=== PATIENT | female | born 1980 | race Two or more races ===

== ENCOUNTER → 2020-05-22 | Outpatient (CLI) | payer OTHER ==
[2020-05-22 12:24] LABS: BASOPHILS % (AUTO) 1 % (0-1); EOSINOPHILS % (AUTO) 2 % (1-7); LYMPHOCYTES % (AUTO) 26 % (22-44); MEAN CORPUSCULAR HEMOGLOBIN 29.4 pg (27.0-34.8); MEAN CORPUSCULAR HGB CONC 33.4 g/dL (32.4-35.8); MONOCYTES % (AUTO) 5 % (2-9); NEUTROPHILS % (AUTO) 67 % (42-75); PLATELET COUNT 365 x10^3/uL (130-400); RED BLOOD COUNT 4.37 x10^6/uL (3.82-5.3); RED CELL DISTRIBUTION WIDTH 14.8 % (9.6-15.2)
[2020-05-22 12:25] LABS: MD NO
[2020-05-22 12:33] LABS: INTERNATIONAL NORMALIZED RATIO 0.99 (0.93-1.1); PROTHROMBIN TIME 10.5 Seconds (9.6-11.5)
[2020-05-22 12:35] LABS: ALBUMIN 3.9 g/dL (3.4-5.0); ANION GAP 7 mmol/L (5-15); CHLORIDE 106 mmol/L (98-107)
[2020-05-22 12:43] LABS: ALANINE AMINOTRANSFERASE 32 U/L (12-78); ALKALINE PHOSPHATASE 81 U/L (45-117); BILIRUBIN,TOTAL 0.4 mg/dL (0.2-1.0); CREATININE 0.85 mg/dL (0.55-1.02); TOTAL PROTEIN 7.6 g/dL (6.4-8.2)
== END | disposition home or self-care (01) ==
LOC: STAR 10:37
PROVIDERS: ATTEND Obstetrics & Gynecology
DX: Z01.818 Encounter for other preprocedural examination (principal); C55 Malignant neoplasm of uterus, part unspecified; N91.2 Amenorrhea, unspecified; N92.1 Excessive and frequent menstruation with irregular cycle; Z20.828 Contact with and (suspected) exposure to other viral communicable diseases
CPT/HCPCS: 71046; 80053; 84703; 85025; 85610; 85730; 86304; 87635; 93005

== ENCOUNTER 2020-05-26 09:12 | Day surgery (SDC) | payer OTHER ==
[~2020-05-26] VITALS: Ht 175.3 cm; Wt 96.0 kg
[~2020-05-26 09:12] MED LIST: BUPIVACAINE/PF 0.25% ONE; EPINEPHRINE 1 MG/ML, 1ML ONE; HEPARIN 1,000 UNITS/ML, 10ML ONE
[2020-05-26] MEDS ORDERED: CHLORHEXIDINE 15 ML UDC MM STA (09:28)
[2020-05-26] MEDS ORDERED: LACTATED RINGERS 1,000 ML IV SCH (09:30)
[2020-05-26] MEDS ORDERED: CEFOTETAN PMX 2GM/50ML 50 ML IVPB STA (09:54)
[2020-05-26 10:05] LABS: HCG UR SG 1.008 (1.003-1.030)
[2020-05-26] MEDS ORDERED: MIDAZOLAM 1 MG/ML, 2ML ONE (11:24)
[2020-05-26] MEDS ORDERED: FENTANYL PF 250 MCG/5ML ONE (11:24)
[2020-05-26] MEDS ORDERED: DEXAMETHASONE 4 MG/ML, 1ML ONE (11:28)
[2020-05-26] MEDS ORDERED: INDOCYANINE GREEN 25 MG VIAL INJ ONE (12:29)
[2020-05-26] MEDS ORDERED: HYDROmorphone 1 MG/ML, 1ML INJ IVPush PRN (13:00)
[2020-05-26] MEDS ORDERED: ONDANSETRON 2MG/ML, 2ML IVPush PRN (13:00)
[2020-05-26] MEDS ORDERED: LORazepam 2 MG/ML, 1ML IVPush PRN (13:00)
[2020-05-26] MEDS ORDERED: MEPERIDINE/PF 25MG/0.5ML IVPush PRN (13:00)
[2020-05-26] MEDS ORDERED: ACETAMINOPHEN 325 MG TABLET PO PRN (13:00)
[2020-05-26] MEDS ORDERED: PROMETHAZINE 25 MG SUPP PR PRN (13:00)
[2020-05-26] MEDS ORDERED: PROMETHAZINE 25 MG/ML, 1ML IVPush PRN (13:00)
[2020-05-26] MEDS ORDERED: FENTANYL PF 100 MCG/2ML IV PRN (13:00)
[2020-05-26] MEDS ORDERED: METHOCARBAMOL 1,000 MG in DEXTROSE 5% 100 ML IV PRN (13:00)
[2020-05-26] MEDS ORDERED: GLYCOPYRROLATE 0.2MG/1ML, 5ML ONE (13:55)
[2020-05-26] MEDS ORDERED: ROCURONIUM 10MG/ML,5ML ONE (13:55)
[2020-05-26] MEDS ORDERED: PROPOFOL 10 MG/ML, 20ML ONE (13:55)
[2020-05-26] MEDS ORDERED: ONDANSETRON 2MG/ML, 2ML ONE (13:55)
[2020-05-26] MEDS ORDERED: NEOSTIGMINE 1 MG/ML, 10ML ONE (13:55)
[2020-05-26] MEDS ORDERED: SUGAMMADEX 200 MG/2 ML IVPush ONE (13:55)
[2020-05-26] MEDS ORDERED: SUCCINYLCHOLINE 20 MG/ML, 10ML ONE (13:55)
[2020-05-26] MEDS ORDERED: CEFAZOLIN 1,000 MG ONE (13:55)
[2020-05-26] MEDS ORDERED: MEPERIDINE/PF 25MG/ML,1ML ONE (14:28)
[2020-05-26] MEDS ORDERED: FENTANYL PF 100 MCG/2ML ONE (14:28)
[2020-05-26] MEDS ORDERED: OXYcodone 5 MG/5 ML ORAL.SOL UDC ONE (14:28)
[2020-05-26] MEDS: OXYcodone 5 MG/5 ML ORAL.SOL UDC PO PRN ×2 (14:46→16:03)
== END 2020-05-26 17:05 | disposition home or self-care (01) ==
LOC: OUT 09:12
PROVIDERS: ATTEND Obstetrics & Gynecology
DX: N93.8 Other specified abnormal uterine and vaginal bleeding (principal); K66.0 Peritoneal adhesions (postprocedural) (postinfection); N84.1 Polyp of cervix uteri; F17.210 Nicotine dependence, cigarettes, uncomplicated; Z98.890 Other specified postprocedural states; Z72.89 Other problems related to lifestyle; Z98.51 Tubal ligation status; Z79.899 Other long term (current) drug therapy
CPT/HCPCS: 36415; 58571; 58679; 81025; 86850; 86900; 86923; 88112; 88305; 88309; 88331; J0171; J0330; J0690; J1100; J1644; J2175; J2250; J2405; J2704; J2710; J3010; J7120; S2900